=== PATIENT | female | born 1990 | race African-American/Black ===

== ENCOUNTER → 2018-11-03 | Outpatient (CLI) | payer OTHER ==
[2018-11-03 13:06] LABS: ABSOLUTE LYMPHOCYTES (AUTO) 2.7 10^3/uL (0.5-4.7); ABSOLUTE MONOCYTES (AUTO) 0.4 10^3/uL (0.1-1.4); ABSOLUTE NEUT (AUTO) 4.2 10^3/uL (1.7-8.2); BASOPHILS % (AUTO) 0.4 % (0-2); EOSINOPHILS % (AUTO) 0.3 % (0-6); HEMATOCRIT 39.5 % (36.0-47.0); HEMOGLOBIN 13.5 g/dL (12.0-15.5); LYMPHOCYTES % (AUTO) 36.5 % (13-45); MEAN CORPUSCULAR HEMOGLOBIN 28.4 pg (27.0-33.4); MEAN CORPUSCULAR HGB CONC 34.2 g/dL (32.0-36.0); MEAN CORPUSCULAR VOLUME 83 fl (80-97); MONOCYTES % (AUTO) 4.8 % (3-13); PLATELET COUNT 252 10^3/uL (150-450); RED BLOOD COUNT 4.75 10^6/uL (3.72-5.28); RED CELL DISTRIBUTION WIDTH 13.5 % (11.5-14.0); TOTAL CELLS COUNTED % (AUTO) 100 %; WHITE BLOOD COUNT 7.3 10^3/uL (4.0-10.5)
[2018-11-03 13:36] LABS: ALANINE AMINOTRANSFERASE 16 U/L (9-52); ALBUMIN 4.1 g/dL (3.5-5.0); ALKALINE PHOSPHATASE 83 U/L (38-126); ANION GAP 9 (5-19); ASPARTATE AMINO TRANSFERASE 14 U/L (14-36); BILIRUBIN,DIRECT 0.2 mg/dL (0.0-0.4); BILIRUBIN,TOTAL 0.4 mg/dL (0.2-1.3); BLOOD UREA NITROGEN 8 mg/dL (7-20); CALCIUM 9.8 mg/dL (8.4-10.2); CARBON DIOXIDE 28 mmol/L (22-30); CHLORIDE 102 mmol/L (98-107); GLUCOSE 252 mg/dL (75-110); POTASSIUM 4.3 mmol/L (3.6-5.0); SODIUM 138.5 mmol/L (137-145); TOTAL PROTEIN 7.4 g/dL (6.3-8.2)
== END ==
LOC: CCC 12:12
DX: Z00.00 Encounter for general adult medical examination without abnormal findings (principal)
CPT/HCPCS: 36415; 80053; 83036; 84443; 85025

== ENCOUNTER 2019-02-01 23:27 | Emergency (ER) | payer SELFPAY ==
[2019-02-02 00:45] LABS: ABSOLUTE LYMPHOCYTES (AUTO) 2.4 10^3/uL (0.5-4.7); ABSOLUTE MONOCYTES (AUTO) 0.8 10^3/uL (0.1-1.4); ABSOLUTE NEUT (AUTO) 5.4 10^3/uL (1.7-8.2); BASOPHILS % (AUTO) 0.3 % (0-2); EOSINOPHILS % (AUTO) 0.4 % (0-6); HEMATOCRIT 34.8 % (36.0-47.0); HEMOGLOBIN 11.6 g/dL (12.0-15.5); LYMPHOCYTES % (AUTO) 27.9 % (13-45); MEAN CORPUSCULAR HEMOGLOBIN 27.9 pg (27.0-33.4); MEAN CORPUSCULAR HGB CONC 33.4 g/dL (32.0-36.0); MEAN CORPUSCULAR VOLUME 84 fl (80-97); MONOCYTES % (AUTO) 8.8 % (3-13); PLATELET COUNT 233 10^3/uL (150-450); RED BLOOD COUNT 4.17 10^6/uL (3.72-5.28); RED CELL DISTRIBUTION WIDTH 13.5 % (11.5-14.0); SEGMENTED NEUTROPHILS % (AUTO) 62.6 % (42-78); TOTAL CELLS COUNTED % (AUTO) 100 %; WHITE BLOOD COUNT 8.6 10^3/uL (4.0-10.5)
[2019-02-02 00:56] LABS: ALANINE AMINOTRANSFERASE 14 U/L (9-52); ALBUMIN 3.6 g/dL (3.5-5.0); ALKALINE PHOSPHATASE 68 U/L (38-126); ANION GAP 10 (5-19); ASPARTATE AMINO TRANSFERASE 15 U/L (14-36); BILIRUBIN,DIRECT 0.2 mg/dL (0.0-0.4); BILIRUBIN,TOTAL 0.3 mg/dL (0.2-1.3); BLOOD UREA NITROGEN 9 mg/dL (7-20); CALCIUM 8.9 mg/dL (8.4-10.2); CARBON DIOXIDE 28 mmol/L (22-30); CHLORIDE 99 mmol/L (98-107); GLUCOSE 277 mg/dL (75-110); POTASSIUM 3.6 mmol/L (3.6-5.0); SODIUM 136.6 mmol/L (137-145); TOTAL PROTEIN 6.7 g/dL (6.3-8.2)
--- NOTE | 2019-02-02 01:17 | ER Document Report ---
Entered by ABDIFATAH GOMEZ SCRIBE 02/02/19 0030 Acting as scribe for:JANENE RICHARDS MD ED General - General Chief Complaint: Abdominal Pain Stated Complaint: ABDOMINAL PAIN Time Seen by Provider: 02/02/19 00:10 Primary Care Provider: [facility] [Primary Care Provider] - Follow up as needed Notes: Patient is a 28-year-old female presenting to the emergency department complai kristina of abdominal pain. Patient states that the pain began about 4 days ago. Patient denies any nausea, vomiting, diarrhea, fever, vaginal discharge, burning, itching. Patient states that she did notice on urination herpes seemed "creamy". Patient states that using the bathroom gives her a "pressure on abdomen". Patient states that her last menstrual period was January 20, 2019. Upon reviewing records it is discovered that she is on metformin for her diabetes mellitus type 2, but she is not taking it currently, she only got 1 prescription filled. TRAVEL OUTSIDE OF THE [place] IN LAST 30 DAYS: No - Related Data Allergies/Adverse Reactions: No Known Allergies Allergy (Verified 02/01/19 23:37) Past Medical History - General Information source: Patient - Social History Smoking Status: Current Every Day Smoker Cigarette use (# per day): Yes Chew tobacco use (# tins/day): No Smoking Education Provided: No Frequency of alcohol use: None Drug Abuse: Marijuana Family History: Reviewed & Not Pertinent, DM Endocrine Medical History: Reports: Hx Diabetes Mellitus Type 2 - Immunizations Hx Diphtheria, Pertussis, Tetanus Vaccination: Yes Review of Systems - Review of Systems Constitutional: See HPI. denies: Fever EENT: No symptoms reported Cardiovascular: No symptoms reported Respiratory: No symptoms reported Gastrointestinal: See HPI, Abdominal pain. denies: Diarrhea, Nausea, Vomiting Genitourinary: No symptoms reported Female Genitourinary: No symptoms reported Musculoskeletal: No symptoms reported Skin: No symptoms reported Hematologic/Lymphatic: No symptoms reported Neurological/Psychological: No symptoms reported Physical Exam - Vital signs Vitals: Temp Pulse Resp BP Pulse Ox 98.8 F 71 16 125/79 98 02/01/19 23:32 02/01/19 23:32 02/01/19 23:32 02/01/19 23:32 02/01/19 23:32 - Notes Notes: Physical Exam: General: Alert, appears well. HEENT: Normocephalic. Atraumatic. PERRL. Extraocular movements intact. Oropharynx clear. Neck: Supple. Non-tender. Respiratory: No respiratory distress. Clear and equal breath sounds bilaterally. Cardiovascular: Regular rate and rhythm. Abdominal: Right lower quadrant tenderness to palpation. Left lower quadrant mildly tender to palpation. Suprapubic mild tenderness to palpation. Decreased bowel Sounds. No guarding or rebound tenderness. Back: Non-tender. Extremities: Moves all four extremities. Upper extremities: Normal inspection. Normal ROM. Lower extremities: Normal inspection. No edema. Normal ROM. Neurological: Normal cognition. AAOx4. Normal speech. Psychological: Normal affect. Normal Mood. Skin: Warm. Dry. Normal color. Course - Vital Signs Vital signs: Temp Pulse Resp BP Pulse Ox 98.8 F 71 16 125/79 98 02/01/19 23:32 02/01/19 23:32 02/01/19 23:32 02/01/19 23:32 02/01/19 23:32 - Laboratory Result Diagrams: 02/02/19 00:30 02/02/19 00:30 Laboratory results interpreted by me: 02/02/19 02/02/19 02/02/19 00:30 00:30 01:10 Hgb 11.6 L Hct 34.8 L Sodium 136.6 L Glucose 277 H Urine Glucose (UA) >=500 H Discharge - Discharge Clinical Impression: Pelvic pain Abdominal pain Qualifiers: Abdominal location: right lower quadrant Qualified Code(s): R10.31 - Right lower quadrant pain Hyperglycemia due to type 2 diabetes mellitus Qualifiers: Diabetes mellitus 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 Pain can mean a serious problem requiring surgery (such as appendicitis). It can also be an innocent problem that goes away on its own (such as a viral infection). Often, time must pass to determine the cause of pain. The physician does not feel that hospitalization is necessary, at present. Things may change within the next 24 hours. Call the doctor or come back for re- examination if any problems occur, such as: (1) Pain that becomes more severe, steady, or becomes concentrated in one specific area. Also, pain that is more severe with movement or coughing. (2) Vomiting that persists or becomes more frequent. (3) Blood in the vomitus, urine, or bowel movements. Blood in the stool may have a tarry or black appearance. (4) Shaking chills or fever greater than 100 degrees F. (5) The abdomen becomes more distended or swollen. (6) Bowel movements cease. (7) Failure to improve as expected. Pelvic Pain: There are many causes of pain in the pelvic area. The cause could be the t ubes, ovaries, uterus, intestines, appendix, pelvic muscles and connective tissue, or the urinary tract. The cause of your pelvic pain is not clear. However, it seems safe to treat you outside the hospital. If the pain sounds like a temporary problem, we sometimes wait to see if it goes away. Other patients may need additional tests, such as pelvic ultrasound or cultures. Conditions may change. Call us or come back for reexamination if any problems occur, such as: (1) Pain that becomes more severe, steady, or becomes concentrated in one specific area. Also, pain that is more severe with movement or coughing. (2) Vomiting that persists or becomes more frequent. (3) Blood in the vomitus, urine, or bowel movements. Blood in the stool may have a tarry or black appearance. (4) Shaking chills or fever greater than 100 degrees. (5) The abdomen becomes more distended or swollen. (6) Bowel movements cease. (7) Heavy vaginal bleeding. Diabetes: You have an abnormally high blood sugar. This is called diabetes. Uncontrolled high blood sugar leads to early heart disease, strokes, nerve damage, eye damage, and kidney damage. All diabetics should follow a diet designed to control the blood sugar. Overweight diabetics should exercise regularly and lose weight. If this is not sufficient to control the blood sugar, pills or insulin shots are necessary. Younger people who develop diabetes almost always require insulin daily. Home testing of blood sugars or urine sugar is required. Diabetic teaching is available to help you figure insulin doses and monitor the blood sugar. Call the physician if there is faintness, excess sleepiness, or very rapid breathing. If hypoglycemia (LOW blood sugar) develops, symptoms are shakiness, weakness, sweating, and confusion. In this case, you should eat or drink something with sugar at once. * Take medications as prescribed. Take Tylenol and ibuprofen for pain if needed. Drink plenty of fluids. Follow-up with a local medical doctor to manage your diabetes. Follow-up with [facility] if your abdomen and pelvic pain does not improve. RETURN TO THE EMERGENCY ROOM IF ANY NEW OR WORSENING SYMPTOMS. Prescriptions: Doxycycline Hyclate 100 mg PO BID #14 tablet. Metformin HCl 850 mg PO BID #60 tablet Referrals: [facility] [Primary Care Provider] - Follow up as needed Scribe Attestation: 02/02/19 01:20 I personally performed the services described in the documentation, reviewed and edited the documentation which was dictated to the scribe in my presence, and it accurately records my words and actions. I personally performed the services described in the documentation, reviewed and edited the documentation which was dictated to the scribe in my presence, and it accurately records my words and actions.
[2019-02-02 01:24] LABS: APPEARANCE,URINE CLEAR; BILIRUBIN,URINE NEGATIVE (NEGATIVE); COLOR,URINE YELLOW; GLUCOSE, URINE >=500 mg/dL (NEGATIVE); KETONES,URINE NEGATIVE (NEGATIVE); LEUKOCYTE ESTERASE,URINE NEGATIVE (NEGATIVE); NITRITE,URINE NEGATIVE (NEGATIVE); PROTEIN,URINE NEGATIVE (NEGATIVE); URINE SPECIFIC GRAVITY 1.014; UROBILINOGEN,URINE NEGATIVE mg/dL (<2.0)
--- NOTE | 2019-02-02 02:34 | RADIOLOGY REPORT (SQ) ---
EXAM DESCRIPTION: US PELVIS TRANSVAGINAL COMPLETED DATE/TME: 02/02/2019 01:56 CLINICAL HISTORY: 28 years, Female, Right pelvic pain COMPARISON: None. TECHNIQUE: Transverse and longitudinal transvaginal sonographic images of the pelvis LIMITATIONS: None. FINDINGS: The uterus measures 6.3 x 3.8 x 3.1 cm. The endometrium measures 3 mm in thickness. The myometrium is homogenous. The right ovary measures 1.5 x 1.8 x 2.2 cm, the left 1.5 x 1.7 x 2.1 cm. Arterial and venous flow to each ovary. No adnexal cyst or mass. No free fluid IMPRESSION: Unremarkable exam copyright 2010 [employer]- All Rights Reserved
[2019-02-02] MEDS ORDERED: METFORMIN HCL 850 MG TABLET PO ONE (02:35)
[2019-02-02] MEDS ORDERED: DOXYCYCLINE HYCLATE 100 MG TABLET PO ONE (02:35)
[2019-02-02] MEDS ORDERED: METFORMIN HCL 850 MG TABLET ONE (03:10)
[2019-02-02 03:28] VITALS: BP 145/72
[2019-02-02 04:17] LABS: CHLAM PCR DETECTED (NOT DETECT)
== END 2019-02-02 03:26 | disposition home or self-care (01) ==
LOC: ER 23:27
DX: R10.2 Pelvic and perineal pain (principal); E11.65 Type 2 diabetes mellitus with hyperglycemia; R10.31 Right lower quadrant pain
CPT/HCPCS: 36415; 76830; 80053; 81001; 84703; 85025; 87491; 87591; 99284; J3490

== ENCOUNTER 2019-08-30 09:41 | Emergency (ER) | payer OTHER ==
--- NOTE | 2019-08-30 11:31 | ER Document Report ---
HPI - HPI Time Seen by Provider: 08/30/19 11:26 Context: CHIEF COMPLAINT: Cough and cold symptoms for 5 days HPI: 29-year-old female presenting to the emergency department complaining of cough and cold symptoms for 5 days. Has taken no medications for her symptoms. No fever. Patient does report that she has a mild sore throat. She does report that she has slight shortness of breath and feels like she is wheezing in the morning, no asthma history. No pleuritic discomfort. Patient is not short of breath currently. No chest pain ROS: See HPI - all other systems were reviewed and are otherwise negative Constitutional: no fever Eyes: no drainage, no blurred vision ENT: no runny nose, positive sore throat Cardiovascular: no chest pain Resp: no SOB currently, positive cough GI: no vomiting, no diarrhea, no abdominal pain : no dysuria Integumentary: no rash Allergy: no hives Musculoskeletal: no extremity pain or swelling Neurological: no numbness/tingling, no weakness MEDICATIONS: I agree with the patient medications as charted by the RN. ALLERGIES: I agree with the allergies as charted by the RN. PAST MEDICAL HISTORY/PAST SURGICAL HISTORY: Reviewed and agree as charted by RN. SOCIAL HISTORY: Reviewed and agree as charted by RN. FAMILY HISTORY: No significant familial comorbid conditions directly related to patient complaint EXAM: Reviewed vital signs as charted by RN. CONSTITUTIONAL: Alert and oriented and responds appropriately to questions. Well-appearing; well-nourished, no acute distress HEAD: Normocephalic; atraumatic EYES: PERRL; Conjunctivae clear, sclerae non-icteric ENT: normal nose; no rhinorrhea; moist mucous membranes; mild pharyngeal susu thema is noted, no uvula edema or deviation, no tonsillar hypertrophy, phonation normal NECK: Supple without meningismus; non-tender; no cervical lymphadenopathy, no masses CARD: RRR; no murmurs, no clicks, no rubs, no gallops; symmetric distal pulses RESP: Normal chest excursion without splinting or tachypnea; breath sounds clear and equal bilaterally; no wheezes, no rhonchi, no rales, pulse oximetry 99% on room air not hypoxic ABD/GI: Normal bowel sounds; non-distended; soft, non-tender, no rebound, no guarding; no palpable organomegaly or masses. BACK: The back appears normal and is non-tender to palpation, there is no CVA tenderness EXT: Normal ROM in all joints; non-tender to palpation; no cyanosis, no effusions, no edema SKIN: Normal color for age and race; warm; dry; good turgor; no acute lesions noted NEURO: Moves all extremities equally; Motor and sensory function intact PSYCH: The patient's mood and manner are appropriate. Grooming and personal hygiene are appropriate. MDM: 29-year-old female with what is likely a viral upper respiratory infection. She has no active wheezing at this time, low suspicion for PE or pneumonia. No fevers. Mild pharyngeal erythema will obtain rapid strep, if positive will place on antibiotics if negative will treat with albuterol, decongestants, PCP follow-up - REPRODUCTIVE Reproductive: DENIES: : Past Medical History - Social History Smoking Status: Former Smoker Family History: Reviewed & Not Pertinent, DM Endocrine Medical History: Reports: Hx Diabetes Mellitus Type 2 Renal/ Medical History: Denies: Hx Peritoneal Dialysis - Immunizations Hx Diphtheria, Pertussis, Tetanus Vaccination: Yes Vertical Provider Document - INFECTION CONTROL TRAVEL OUTSIDE OF THE [place] IN LAST 30 DAYS: No Course - Re-evaluation Re-evalutation: 08/30/19 12:28 Rapid strep is negative, discharge home with symptomatic treatment - Vital Signs Vital signs: Temp Pulse Resp BP Pulse Ox 98.6 F 90 17 131/83 H 98 08/30/19 11:22 08/30/19 11:22 08/30/19 11:22 08/30/19 11:22 08/30/19 11:22 Discharge - Discharge Clinical Impression: Upper respiratory infection, viral Condition: Stable Disposition: HOME, SELF-CARE Additional Instructions: Use the nasal spray to help dry up your sinuses. Use the albuterol inhaler for wheezing or shortness of breath. Follow-up with a primary care provider for reevaluation of symptoms call for appointment. Rapid strep test was negative today Prescriptions: Fluticasone Propionate [Flonase Nasal Lorane 50 Mcg/Lorane 16 gm] 2 sprays NASL Q12 #1 inhaler Albuterol Sulfate [Proair HFA Inhalation Aerosol 8.5 gm MDI] 2 puff IH Q4H PRN #1 mdi PRN Reason: Referrals: [facility] [Primary Care Provider] - Follow up as needed
[2019-08-30 12:45] VITALS: BP 123/83
== END 2019-08-30 12:45 | disposition home or self-care (01) ==
LOC: ER 09:41
DX: J06.9 Acute upper respiratory infection, unspecified (principal); B97.89 Other viral agents as the cause of diseases classified elsewhere; R05 Cough; J02.9 Acute pharyngitis, unspecified; R06.02 Shortness of breath; R06.2 Wheezing; E11.9 Type 2 diabetes mellitus without complications
CPT/HCPCS: 87070; 87880; 99283

== ENCOUNTER 2020-05-23 15:01 | Emergency (ER) | payer BC, OTHER ==
[2020-05-23] MEDS ORDERED: LIDOCAINE 1% INJ-PF (10 MG/ML) 30 ML SDV INJ ONE (15:38)
--- NOTE | 2020-05-23 15:38 | ER Document Report ---
HPI - HPI Patient complains to provider of: abscess Time Seen by Provider: 05/23/20 15:17 Notes: Patient is a 34-year-old female with complaint of a suprapubic abscess. The abscess appeared 4 to 5 days ago as an area of erythema and induration and gradually has grown bigger and more sore over the past few days. Last night she soaked in a warm bath and took an antibiotic that she had at home. This morning the abscess came to a head and expressed purulent fluid. Has been using a topical ointment at home. She takes Metformin but is unsure whether she is diabetic or prediabetic. Denies fever, chills, body aches. - ROS Systems Reviewed and Negative: Yes All other systems reviewed and negative - CONSTITUTIONAL Constitutional: DENIES: Fever, Chills - EENT EENT: DENIES: Sore Throat, Ear Pain, Congestion - NEURO Neurology: DENIES: Headache - CARDIOVASCULAR Cardiovascular: DENIES: Chest pain - RESPIRATORY Respiratory: DENIES: Trouble Breathing, Coughing - GASTROINTESTINAL Gastrointestinal: DENIES: Abdominal Pain, Nausea, Patient vomiting, Diarrhea - MUSCULOSKELETAL Musculoskeletal: DENIES: Extremity pain, Back Pain, Neck Pain - DERM Skin Color: Normal Notes: Abscess to the abdominal wall Past Medical History - General Information source: Patient - Social History Smoking Status: Never Smoker Frequency of alcohol use: Occasional Drug Abuse: None Family History: Reviewed & Not Pertinent, DM Endocrine Medical History: Reports: Hx Diabetes Mellitus Type 2 Renal/ Medical History: Denies: Hx Peritoneal Dialysis - Immunizations Hx Diphtheria, Pertussis, Tetanus Vaccination: Yes Vertical Provider Document - CONSTITUTIONAL Agree With Documented VS: Yes Exam Limitations: No Limitations General Appearance: WD/WN, No Apparent Distress - INFECTION CONTROL TRAVEL OUTSIDE OF THE [place] IN LAST 30 DAYS: No - HEENT HEENT: Atraumatic, Normocephalic, PERRLA - NECK Neck: Normal Inspection, Supple - RESPIRATORY Respiratory: Breath Sounds Normal, No Respiratory Distress. negative: Rales, Rhonchi, Wheezing - CARDIOVASCULAR Cardiovascular: Regular Rate, Regular Rhythm, No Murmur - GI/ABDOMEN Gastrointestinal: Abdomen Soft, Abdomen Non-Tender, No Organomegaly - BACK Back: Normal Inspection - MUSCULOSKELETAL/EXTREMETIES Musculoskeletal/Extremeties: MAEW, FROM, Non-Tender - NEURO Level of Consciousness: Awake, Alert, Appropriate - DERM Integumentary: Warm, Abscess - There is an abscess to the anterior abdomen prepubic region. Notes: Abscess of the suprapubic region with mild amount of drainage. Slightly still fluctuant. Course - Re-evaluation Re-evalutation: 05/23/20 Impression: Abscess to the abdominal wall. Performed I&D and patient tolerated well. Significant amount of purulence was expressed from the area. We will go ahead and start antibiotics. She is to return if any worsening symptoms. [facility] follow-up in the next 3 to 5 days. - Vital Signs Vital signs: Temp Pulse Resp BP Pulse Ox 99.1 F 111 H 16 122/77 98 05/23/20 15:09 05/23/20 15:09 05/23/20 15:09 05/23/20 15:09 05/23/20 15:09 Procedures - Incision and Drainage Abdomen Time completed: 17:28 Type: Complex Anesthetic type: 1% Lidocaine mL's of anesthetic: 3 Blade size: 11 I&D procedure: Betadine prep applied, Shurclens applied Incision Method: Incision made by scalpel Amount/type of drainage: 5 cc Discharge - Discharge Clinical Impression: Abscess of abdominal wall Condition: Stable Disposition: HOME, SELF-CARE Instructions: Abscess ([facility]) Additional Instructions: FOLLOW UP WITH PRIMARY CARE WITHOUT FAIL. RETURN IF WORSENING SYMPTOMS. TAKE ALL ANTIBIOTICS. Prescriptions: Sulfamethoxazole/Trimethoprim [Bactrim Ds Tablet] 1 each PO BID #20 tablet Cephalexin Monohydrate [Keflex 500 mg Capsule] 500 mg PO Q6H #40 capsule Hydrocodone/Acetaminophen [Mesa 5-325 mg Tablet] 1 tab PO Q6H #10 tablet Forms: Return to Work Referrals: [facility] [Provider Group] - Follow up in 1 week
[2020-05-23 17:50] VITALS: BP 114/66
== END 2020-05-23 17:40 | disposition home or self-care (01) ==
LOC: ER 15:01
DX: L02.211 Cutaneous abscess of abdominal wall (principal); E11.9 Type 2 diabetes mellitus without complications
CPT/HCPCS: 99283; 10061; J3490